=== PATIENT | female | born 1990 | race Hispanic/Latino ===

== ENCOUNTER 2017-02-28 11:09 | Emergency (ER) | payer OTHER ==
[~2017-02-28] VITALS: Ht 152.4 cm; Wt 59.0 kg
[2017-02-28] MEDS ORDERED: MELOXICAM15 M1 PO (11:53)
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
[2017-02-28] MEDS ORDERED: CYCLOBENZAPRINE5 M2 PO (13:01)
[2017-02-28 13:07] VITALS: BP 123/64
== END 2017-02-28 13:09 ==
LOC: ERH 11:09
DX: S86.912A Strain of unspecified muscle(s) and tendon(s) at lower leg level, left leg, initial encounter (principal); V47.5XXA Car driver injured in collision with fixed or stationary object in traffic accident, initial encounter; Y93.9 Activity, unspecified; Y92.488 Other paved roadways as the place of occurrence of the external cause
CPT/HCPCS: 73502-LT